=== PATIENT | male | born 1970 | race American Indian/Alaskan Native ===

== ENCOUNTER 2017-05-25 13:38 | Day surgery (SDC) | payer MEDICAID ==
[~2017-05-25] VITALS: Ht 152.4 cm; Wt 76.1 kg
[~2017-05-25 13:38] MED LIST: ASPI-1265 PO; ATOR80TA PO; BUSP15TA4 PO; CHOL400T32 PO; ISOS30TA9 PO; KLONOPIN; LACT10SO PO; METO-411 PO; NITR0.4T SL; TRAZODONE
[2017-05-25] MEDS ORDERED: CLOP75TA35 PO (13:56)
[2017-05-25] MEDS ORDERED: CARI3CAP PO (13:56)
[2017-05-25] MEDS ORDERED: FENO48TA15 PO (13:56)
[2017-05-25] MEDS ORDERED: HYDR50TA65 PO (13:56)
[2017-05-25 14:05] VITALS: BP 139/84
[2017-05-25] MEDS ORDERED: MIDAZolam 5mg/ml 2ml vial ONE (14:11)
[2017-05-25] MEDS ORDERED: fentaNYL/PF 50MCG/1 ML 2ML syringe ONE (14:11)
[2017-05-25 14:44] VITALS: BP 140/87
[2017-05-25 14:54] VITALS: BP 132/73
[2017-05-25 15:04] VITALS: BP 140/76
[2017-05-25 15:14] VITALS: BP 135/89
== END 2017-05-25 15:20 | disposition home or self-care (01) ==
LOC: GI LAB 13:38
PROVIDERS: ATTEND Internal Medicine Gastroenterology
DX: I85.00 Esophageal varices without bleeding (principal); K44.9 Diaphragmatic hernia without obstruction or gangrene; K29.50 Unspecified chronic gastritis without bleeding; I25.10 Atherosclerotic heart disease of native coronary artery without angina pectoris; M19.90 Unspecified osteoarthritis, unspecified site; F41.9 Anxiety disorder, unspecified; E78.5 Hyperlipidemia, unspecified; F17.210 Nicotine dependence, cigarettes, uncomplicated; K21.0 Gastro-esophageal reflux disease with esophagitis; Z95.0 Presence of cardiac pacemaker; Z98.890 Other specified postprocedural states; Z88.2 Allergy status to sulfonamides; Z79.82 Long term (current) use of aspirin; Z95.5 Presence of coronary angioplasty implant and graft; Z79.899 Other long term (current) drug therapy
CPT/HCPCS: 43239; 99152; J2250; J3010; J7030; A4620; G0500

== ENCOUNTER 2017-10-12 13:07 | Day surgery (SDC) | payer MEDICAID ==
[~2017-10-12] VITALS: Ht 152.4 cm; Wt 81.8 kg
[~2017-10-12 13:07] MED LIST changes: +CARI3CAP PO; +CLOP75TA35 PO; +FENO48TA15 PO; +HYDR50TA65 PO; -KLONOPIN
[2017-10-12 13:18] VITALS: BP 123/78
[2017-10-12] MEDS ORDERED: fentaNYL/PF 50MCG/1 ML 2ML syringe ONE (14:21)
[2017-10-12] MEDS ORDERED: MIDAZolam 5mg/5ml vial ONE (14:22)
[2017-10-12 14:52] VITALS: BP 122/74
[2017-10-12 15:02] VITALS: BP 105/67
[2017-10-12 15:12] VITALS: BP 111/69
[2017-10-12 15:22] VITALS: BP 109/76
== END 2017-10-12 15:30 | disposition home or self-care (01) ==
LOC: GI LAB 13:07
PROVIDERS: ATTEND Internal Medicine Gastroenterology
DX: K57.30 Diverticulosis of large intestine without perforation or abscess without bleeding (principal); K64.8 Other hemorrhoids; J44.9 Chronic obstructive pulmonary disease, unspecified; I11.0 Hypertensive heart disease with heart failure; I50.9 Heart failure, unspecified; I25.2 Old myocardial infarction; I25.10 Atherosclerotic heart disease of native coronary artery without angina pectoris; E78.5 Hyperlipidemia, unspecified; F17.210 Nicotine dependence, cigarettes, uncomplicated; K21.9 Gastro-esophageal reflux disease without esophagitis; M19.90 Unspecified osteoarthritis, unspecified site; E11.9 Type 2 diabetes mellitus without complications; F41.9 Anxiety disorder, unspecified; Z95.0 Presence of cardiac pacemaker; Z88.2 Allergy status to sulfonamides; Z95.5 Presence of coronary angioplasty implant and graft; Z79.891 Long term (current) use of opiate analgesic; Z87.442 Personal history of urinary calculi; Z86.74 Personal history of sudden cardiac arrest; Z79.899 Other long term (current) drug therapy; Z98.890 Other specified postprocedural states
CPT/HCPCS: 45378; 99152; J2250; J3010; J7030; A4620; G0500

== ENCOUNTER 2018-12-06 09:18 | Day surgery (SDC) | payer MEDICAID ==
[~2018-12-06] VITALS: Ht 152.4 cm; Wt 90.0 kg
[~2018-12-06 09:18] MED LIST changes: -ASPI-1265 PO; -BUSP15TA4 PO; -CHOL400T32 PO; -FENO48TA15 PO; -ISOS30TA9 PO; -LACT10SO PO
[2018-12-06] MEDS ORDERED: MIDAZolam 5mg/5ml vial ONE (09:24)
[2018-12-06] MEDS ORDERED: fentaNYL/PF 50MCG/1 ML 2ML syringe ONE (09:24)
[2018-12-06] MEDS ORDERED: LIDOcaine Viscous 15ml cup ONE (09:24)
[2018-12-06 09:25] VITALS: BP 128/92
[2018-12-06 10:48] VITALS: BP 126/53
[2018-12-06 10:58] VITALS: BP 112/46
[2018-12-06 11:08] VITALS: BP 125/73
[2018-12-06 11:18] VITALS: BP 120/66
== END 2018-12-06 11:20 | disposition home or self-care (01) ==
LOC: GI LAB 09:18
PROVIDERS: ATTEND Internal Medicine Gastroenterology
DX: I85.00 Esophageal varices without bleeding (principal); K44.9 Diaphragmatic hernia without obstruction or gangrene; K21.9 Gastro-esophageal reflux disease without esophagitis; Z79.899 Other long term (current) drug therapy
CPT/HCPCS: 43235; 99152; J2250; J3010; J7040; A4620